=== PATIENT | male | born 1970 | race Caucasian/White ===

== ENCOUNTER 2020-04-11 14:11 | Emergency (ER) | payer MEDICARE, MEDICAID, SELFPAY ==
--- NOTE | 2020-04-11 14:31 | ED.GENADULT ---
HPI - General Adult General Chief complaint: Back Pain/Injury Stated complaint: All over body pain Time Seen by Provider: 04/11/20 14:45 Source: patient and RN notes reviewed Mode of arrival: ambulatory Limitations: no limitations History of Present Illness HPI narrative: 49-year-old male with history of CVA and baseline mild left-sided weakness presents with concern for body aches. Reports starting last night he had left shoulder pain, bilateral back pain, bilateral knee pain without injury. Reports mild cough that started yesterday. He denies shortness of breath, diaphoresis, chest pain, nausea, vomiting, diarrhea, sore throat, nasal congestion, rhinorrhea, abdominal pain. Reports taking Tylenol with no relief of pain. Denies any known sick contacts. MD complaint: bodyaches Related Data Home Medications Medication Instructions Recorded Confirmed atorvastatin 80 mg PO DAILY 04/11/20 04/11/20 clopidogrel 75 mg PO DAILY 04/11/20 04/11/20 cyclobenzaprine 10 mg PO PRN PRN 04/11/20 04/11/20 hydrochlorothiazide 25 mg PO DAILY 04/11/20 04/11/20 lisinopril 20 mg PO DAILY 04/11/20 04/11/20 potassium chloride 20 meq PO DAILY 04/11/20 04/11/20 Allergies Allergy/AdvReac Type Severity Reaction Status Date / Time No Known Allergies Allergy Verified 04/11/20 14:26 Review of Systems Review of Systems: Narrative: CONSTITUTIONAL: Denies malaise, chills, sweats, or fever. Reports fatigue EYES: Denies visual changes, redness, or discharge. ENT: Denies rhinorrhea, congestion, sinus pain, otalgia or sore throat. CARDIOVASCULAR: Denies chest pain, palpitations, or edema. RESPIRATORY: Reports mild cough. Denies dyspnea. GASTROINTESTINAL: Denies abdominal pain, nausea, vomiting, diarrhea SKIN: Denies rash or itching. MUSCULOSKELETAL: Reports bilateral back pain, left shoulder pain, bilateral knee pain NEUROLOGIC: Denies numbness, weakness, or headache. All systems reviewed & are unremarkable except as noted in HPI and below PMFSH Social History Social History Gender identity (if verbalized by the patient): Male Comments At time of signature, agree with nursing past medical, surgical, social and family history. There is no relevant family history pertinent to the presenting complaint Exam Narrative: Exam Narrative: GENERAL: Well-appearing, well-nourished, and in no acute distress. HEAD: Normocephalic, atraumatic. EYES: PERRLA, conjunctivae clear, sclera injected bilaterally ENT: Nares clear. Mucous membranes moist. Oropharynx without erythema or lesions. Tonsils not enlarged and without exudate. NECK: Supple. No lymphadenopathy. CHEST: No respiratory distress. Clear to auscultation. No bony deformities, no asymmetry. Speaks in full sentences. HEART: Regular rate and rhythm. No murmur heard. Normal peripheral pulses. EXTREMITIES: Normal range of motion. No edema. Normal strength and sensation. SKIN: Warm, dry, no rash. NEURO: Alert and oriented x3. No focal deficits. PSYCH: Normal mood and affect Course Course Emergency Course: Discussed with patient further evaluation in the emergency department versus following up with primary care doctor. Through shared decision making, patient has decided to admit treat himself at home and follow-up with his primary care provider. Patient is aware of diagnosis, understands and agrees to treatment plan. Anticipatory guidance given. Patient agrees to follow-up as directed and is aware of reasons to seek care at the emergency department. Portions of this record may have been created with voice recognition software Vital Signs Vital signs: Vital Signs Temperature 98.9 F 04/11/20 14:40 Pulse Rate 71 04/11/20 14:40 Respiratory Rate 16 04/11/20 14:40 Blood Pressure 140/78 04/11/20 14:40 Pulse Oximetry 100 04/11/20 14:40 Temperature 98.9 F 04/11/20 14:40 Pulse Rate 71 04/11/20 14:40 Respiratory Rate 16 04/11/20 14:40 Blood Pressure 140/78 04/11/20 14:40 Pul
--- NOTE | 2020-04-11 14:32 | ECG_ITS ---
Measurements Intervals [place] Rate: 79 P: -19 [place]: 161 QRS: 51 QRSD: 124 T: 36 QT: 387 QTc: 445 Interpretive Statements SINUS RHYTHM FREQUENT ATRIAL PREMATURE COMPLEXES INTRAVENTRICULAR CONDUCTION DELAY BORDERLINE ST ABNORMALITY- INFERIOR LEADS BASELINE ARTIFACT- I, III, AVR, AVL, AVF ABNORMAL ECG Electronically Signed On 04-11-2020 14:52:13 PATIENT ACCESS SPECIALIST by Emil Rivera D.O.
[2020-04-11 14:40] VITALS: BP 140/78; PULSE 71; RESP 16; TEMP 37.2; O2SAT 100
== END 2020-04-11 15:30 | disposition home or self-care (01) ==
PROVIDERS: Emergency Provider Nurse Practitioner; PCP Family Medicine
DX: R94.31 Abnormal electrocardiogram [ECG] [EKG] (principal); U07.1 COVID-19; Z86.73 Personal history of transient ischemic attack (TIA), and cerebral infarction without residual deficits; E78.00 Pure hypercholesterolemia, unspecified
CPT/HCPCS: 87426; 93005; 99213; C9803; G0463

== ENCOUNTER 2021-06-12 02:08 | Day surgery (SDC) | payer MEDICARE, MEDICAID, SELFPAY ==
[2021-05-30 14:43] VITALS: BMI 30.8
--- NOTE | 2021-06-05 12:49 | PC.NURSE ---
spoke with patient regarding holding his plavix (clopidogrel) starting on 06/08/2021 until after proc. on 06/12/2021. pt repeated back to and demonstrated verbal understanding
--- NOTE | 2021-06-10 12:43 | WPDANESEPPF ---
Anes - Initial Pre Proc Eval Procedure: Operation Date: 06/12/21 13:30 Proposed Procedures p Screening Colonoscopy - Jose Alberto Rose MD Date/Time: 06/10/21 12:43 Surgeon: Jose Alberto Rose MD Pre Op Diagnosis: neoplasm screening Patient Data Age: 51 Gender: M Height: 1.88 m Weight: 109 kg Allergies Allergy/AdvReac Type Severity Reaction Status Date / Time No Known Allergies Allergy Verified 05/30/21 14:34 Home Medications Medication Instructions Recorded Confirmed Type atorvastatin 80 mg PO DAILY 04/11/20 05/30/21 History clopidogrel 75 mg PO DAILY 04/11/20 06/12/21 History cyclobenzaprine 10 mg PO PRN PRN 04/11/20 05/30/21 History hydrochlorothiazide 25 mg PO DAILY 04/11/20 05/30/21 History lisinopril 20 mg PO DAILY 04/11/20 05/30/21 History potassium chloride 20 meq PO DAILY 04/11/20 05/30/21 History Patient hx anesthesia problems: none Family hx anesthesia problems: none Results Review: All pre-operative results and documents have been reviewed as part of the pre-operative evaluation. [facility] Past Medical History Medical History (Updated 06/10/21 @ 12:44 by Stalin Chou DO) Anxiety CVA (cerebral vascular accident) Depression Hyperlipidemia Hypertension Social History Social History Smoking status: Never smoker Alcohol intake: never Substance use: never Substance use type: does not use Living arrangements: with family Gender identity (if verbalized by the patient): Male Spiritual care concerns: No Anes - Eval Final PreProcedure Day of Procedure 06/10/21 12:43 Patient weight: obese Heart: regular rate and rhythm Lungs: clear to auscultation and normal air movement Airway: Mallampati scale class II Neurological: alert and oriented Last oral intake: >/= 8 hours ASA classification: III Emergent: no Anesthetic plan: proceed Anesthesia type and monitoring: general GIVS and standard monitoring Results Review: All pre-operative results and documents have been reviewed as part of the pre-operative evaluation. Informed Consent: The patient's anesthetic plan and its attendant risks and benefits were discussed with the patient/family/POA. Questions were solicited and answers provided to the satisfaction of the patient/family/POA.
[2021-06-12 12:21] VITALS: BP 137/87; PULSE 60; RESP 18; TEMP 36.1; O2SAT 98
[2021-06-12] MEDS: LACTATED RINGERS 1,000 ML 150 ML IV CONT (12:34)
--- NOTE | 2021-06-12 12:44 | WPDGICN ---
Assessment and Plan Assessment and plan (1) Encounter for screening colonoscopy: Code(s): Z12.11 - Encounter for screening for malignant neoplasm of colon Status: Acute Assessment and Plan: Patient presents for screening colonoscopy. Appears to be at average risk for colon polyps. GI Consult Note Consult date/time: 06/12/21 12:44 HPI: Domo Bullard is a 51 year old male Presents for screening colonoscopy. He reports that his current weight appetite and bowel movements are normal. He denies abdominal pain. He has had no bleeding. Family history is noncontributory. Patient reports that he had a CVA 7 years ago. Since that time has been maintained on Plavix. And also lipid-lowering medications. Family history is noncontributory. Review of Systems Review of Systems: All systems reviewed & are unremarkable except as noted in HPI and below PMFSH Past Medical History Medical History (Updated 06/12/21 @ 12:46 by Jose Alberto Rose MD) Anxiety CVA (cerebral vascular accident) Depression Hyperlipidemia Hypertension Social History Social History Smoking status: Never smoker Alcohol intake: never Substance use: never Substance use type: does not use Living arrangements: with family Gender identity (if verbalized by the patient): Male Spiritual care concerns: No Meds Home Medications and Allergies Home Medications Medication Instructions Recorded Confirmed Type atorvastatin 80 mg PO DAILY 04/11/20 05/30/21 History clopidogrel 75 mg PO DAILY 04/11/20 06/12/21 History cyclobenzaprine 10 mg PO PRN PRN 04/11/20 05/30/21 History hydrochlorothiazide 25 mg PO DAILY 04/11/20 05/30/21 History lisinopril 20 mg PO DAILY 04/11/20 05/30/21 History potassium chloride 20 meq PO DAILY 04/11/20 05/30/21 History Allergies Allergy/AdvReac Type Severity Reaction Status Date / Time No Known Allergies Allergy Verified 05/30/21 14:34 Vital Signs Vital Signs - 24 hr 06/12/21 12:21 Temperature 97 F L Pulse Rate 60 Respiratory Rate 18 Blood Pressure 137/87 Pulse Oximetry 98 Exam Narrative: Physical exam reveals patient be alert. Vital signs stable. HEENT exam is unremarkable. Patient is anicteric. Lungs are clear to auscultation and percussion. Heart is without murmur or extra sounds. Abdominal exam bowel sounds present soft nontender with no organomegaly. Digital external rectal exam is normal.
[2021-06-12 13:03] VITALS: BP 164/108; PULSE 66; RESP 20; O2SAT 100
[2021-06-12 13:08] VITALS: BP 156/98
[2021-06-12 13:13] VITALS: BP 148/97; PULSE 56; RESP 15; O2SAT 100
[2021-06-12 13:23] VITALS: BP 147/98; PULSE 57; RESP 11; O2SAT 100
== END 2021-06-12 13:33 | disposition home or self-care (01) ==
PROVIDERS: PCP Family Medicine; Visit Provider Internal Medicine Gastroenterology
PROC: 0DJD8ZZ Inspection of Lower Intestinal Tract, Via Natural or Artificial Opening Endoscopic (ICD-10-PCS; CPT 45378; principal; 2021-06-12 13:30)
DX: Z12.11 Encounter for screening for malignant neoplasm of colon (principal); K64.8 Other hemorrhoids; K57.30 Diverticulosis of large intestine without perforation or abscess without bleeding; I10 Essential (primary) hypertension; E78.5 Hyperlipidemia, unspecified; F41.8 Other specified anxiety disorders; Z86.73 Personal history of transient ischemic attack (TIA), and cerebral infarction without residual deficits; Z79.02 Long term (current) use of antithrombotics/antiplatelets; E66.9 Obesity, unspecified; Z68.31 Body mass index [BMI] 31.0-31.9, adult
CPT/HCPCS: G0121; J2704; J7120

== ENCOUNTER 2022-03-06 14:00 | Outpatient (RCR) | payer MEDICARE, MEDICAID, SELFPAY ==
--- NOTE | 2022-01-10 12:28 | PCPTNOTE ---
Patient called to reschedule evaluation reports his car in not starting.
--- NOTE | 2022-01-22 14:28 | PTOPEVAL1 ---
Assessment and note entered by Nik Kumar, PT Evaluation Information Assessment Status Evaluation Diagnosis L knee pain Onset gradual Subjective Information Patient reports he has been having increased L knee pain. The patient reports that his knee feels stiff in the morning or when letting it stay in the same position for extended periods of time . The patient also reports his L hip and shoulder both have degenerative joint disease and he feels like the knee might be doing the same thing. Secondary to his CVA 7 years ago the patient reports he has had to use the L side to carry extra load so that it wears down faster. He is not having any radiating symptoms of pain and it is not affecting his sleep. Reported Pain Level Pain Score 2: Self Report Assessment PT Clinical Summary Alli is a 51 year old male coming into the clinic with L knee pain. Patient has a past medical history of a CVA 7 years prior. Although his has good recovery he still had to and does put extra pressure through the L side to take stree off of the R side. Patient presents with no positive special tests or specific tenderness in around the knee stating just the entire knee hurts. The patient has decreased quad and hip strength on the L side along with tight rectus femoris, hamstring , and calf on the right side. Patient should benefit from skilled physical therapy to work on increasing the strength of the muscle in the hip and quads to take extra stress off the knee joint and long with stretches to allow for freer movement. Plan of Care Interventions Electrical Stimulation,Gait Training,Manual Therapy,Neuro Re-education,Patient/Caregiver Education,Therapeutic Activities,Therapeutic Exercise,Ultrasound PT Services Indicated Yes Treatment Frequency and 1x/wk for 6 weeks Duration These treatments will address the objective and functional deficits as defined above. The patient will be advanced safely and appropriately in order for the patient to progress towards his/her prior level of function. Additional exercises will be introduced and as well as a comprehensive home exercise program upon discharge, if needed, ?to ensure carryover of functional gains achieved in the clinic. This treatment plan has been reviewed and agreement upon by the patient.
--- NOTE | 2022-01-31 10:20 | PCPTNOTE ---
Patient did not show up for scheduled appointment this date. 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
--- NOTE | 2022-03-05 10:42 | PCPTNOTE ---
Patient called to cancel and reschedule for tomorrow
--- NOTE | 2022-03-06 14:43 | PTOPDC ---
Assessment and note entered by Nik Kumar, PT Evaluation Information Assessment Status Discharge Diagnosis L knee pain Onset gradual Subjective Information Patient reports he has been doing his exercises not everyday, but consistently. He is still going to the gym to ride a bike when able. He has an appointment with his back doctor to have imaging done with his back as he aggravated it while trying to put on his shoe. Reported Pain Level Pain Score 2: Self Report Additional Pain Score Comments non-radiating, whole knee none specific with palpation Assessment PT Clinical Summary Alli is a 51 year old male coming to the clinic for L knee pain since 01/22/22. The patient has made 6 visits and met 3/5 goals. He is proficient with his home exercise program and has made gain in strength and muscle length. Secondary to no change in pain with improved strength, range of motion, and muscle length recommend to patient to see orthopedic doctor for possible imaging and any other non-surgical options such as injections to help with the pain. Discharge from skilled physical therapy with home exercise program. Plan of Care PT Services Indicated No Treatment Frequency and discharge from skilled physical therapy. Duration
== END 2022-03-29 16:06 | disposition home or self-care (01) ==
LOC: ANHPT 14:00
PROVIDERS: PCP Family Medicine
DX: M17.12 Unilateral primary osteoarthritis, left knee (principal)
CPT/HCPCS: 97014; 97110; 97161; 99199; G0283

== ENCOUNTER 2022-10-11 11:06 | Outpatient (CLI) | payer MEDICARE, MEDICAID, SELFPAY ==
[2022-10-11 11:52] LABS: Appearance Urine Clear (Clear); Bilirubin Urine Negative (Negative); Blood Urine Negative (Negative); Color Urine Yellow (Yellow); Glucose Urine UA Negative (Negative); Ketones Urine Trace mg/dL (Negative); Leukocyte Esterase Ur Negative LEU/UL (Negative); Nitrate Urine Negative (Negative); Protein Urine Negative (Negative); Specific Grav Ur 1.026 (1.001-1.035); Urobilinogen Urine 0.2 mg/dL (<2.0)
[2022-10-11 11:54] LABS: Add Urine Microscopic? NO
--- NOTE | 2022-10-11 11:57 | ECG_ITS ---
Measurements Intervals [place] Rate: 57 P: [place]: 0 QRS: 52 QRSD: 103 T: 75 QT: 413 QTc: 404 Interpretive Statements SINUS OR ECTOPIC ATRIAL BRADYCARDIA BORDERLINE ST-T WAVE ABNORMALITY- HIGH LATERAL LEADS BASELINE WANDER- I, II, AVR, AVL, AVF, V1, V4-V6 BORDERLINE ECG COMPARED TO ECG 04/11/2020 14:42:54 SINUS OR ECTOPIC ATIRAL BRADYCARDIA NOW PRESENT ST (T WAVE) DEVIATION NOW PRESENT Electronically Signed On 10-11-2022 12:12:42 CDT by Emil Rivera D.O.
[2022-10-11 12:21] LABS: Basophils Percent Auto 0.4 % (0.2-1.2); Eosinophils Absolute Auto 0.1 K/mm3 (0-0.3); Eosinophils Percent Auto 1.2 % (0-4.4); Hematocrit 46.1 % (42.0-52.0); Hemoglobin 15.1 g/dL (14.0-18.0); Immature Granulocyte Absolute 0.03 K/mm3 (0.00-0.031); Immature Granulocyte Percent A 0.3 % (0-0.5); Lymphocytes Absolute Auto 2.13 K/mm3 (0.9-3.2); Lymphocytes Percent Auto 22.4 % (18.3-44.2); Mean Corpuscular HGB Conc 32.8 g/dl (32-36); Mean Corpuscular Hemoglobin 30.8 pg (26-34); Mean Corpuscular Volume 94.1 fl (80-100); Mean Platelet Volume 9.9 fl (7.4-10.4); Monocytes Absolute Auto 0.8 K/mm3 (0.1-0.6); Monocytes Percent Auto 8.5 % (2.6-8.5); Neutrophils Absolute Auto 6.4 K/mm3 (1.3-6.7); Neutrophils Percent Auto 67.2 % (45.5-73.1); Platelet Count Result 264 k/mm3 (150-375); Red Cell Distribution Width 13.3 % (11.5-14.5); White Blood Count 9.5 K/mm3 (4.5-10.0)
[2022-10-11 12:30] LABS: Anion Gap 9 mmol/L (8-16); Blood Urea Nitrogen 36 mg/dL (9-20); Calcium 9.4 mg/dL (8.4-10.2); Carbon Dioxide 31 mmol/L (22-30); Chloride 99 mmol/L (98-107); Estimated Glomerular Filt Rate > 60; Glucose 88 mg/dL (65-110); Potassium 3.5 mmol/L (3.4-5.0); Sodium 139 mmol/L (137-145)
== END 2022-10-11 11:07 | disposition home or self-care (01) ==
PROVIDERS: PCP Family Medicine; Visit Provider Orthopaedic Surgery
DX: I63.9 Cerebral infarction, unspecified (principal); M16.12 Unilateral primary osteoarthritis, left hip; R00.1 Bradycardia, unspecified; R94.31 Abnormal electrocardiogram [ECG] [EKG]
CPT/HCPCS: 36415; 80048; 81003; 85025; 93005

== ENCOUNTER 2022-12-21 11:01 | Outpatient (CLI) | payer MEDICARE, MEDICAID, SELFPAY ==
[2022-12-21 13:02] LABS: Partial Thromboplastin Time 29.2 SECONDS (22.3-36.8); Prothrombin Time 13.3 Seconds (11.1-14.7)
[2022-12-21 13:03] LABS: Urine Cotinine NEGATIVE
[2022-12-21 13:06] LABS: Appearance Urine Clear (Clear); Bilirubin Urine Negative (Negative); Blood Urine Negative (Negative); Color Urine Yellow (Yellow); Glucose Urine UA Negative (Negative); Ketones Urine Negative (Negative); Leukocyte Esterase Ur Negative LEU/UL (Negative); Nitrate Urine Negative (Negative); Protein Urine Negative (Negative); Specific Grav Ur 1.007 (1.001-1.035); Urobilinogen Urine 0.2 mg/dL (<2.0)
[2022-12-21 13:09] LABS: Albumin Level 4.7 g/dL (3.5-5.1); Anion Gap 2 mmol/L (8-16); Blood Urea Nitrogen 25 mg/dL (9-20); Calcium 9.6 mg/dL (8.4-10.2); Carbon Dioxide 35 mmol/L (22-30); Chloride 101 mmol/L (98-107); Estimated Glomerular Filt Rate > 60; Glucose 92 mg/dL (65-110); Potassium 4.6 mmol/L (3.4-5.0); Sodium 138 mmol/L (137-145)
[2022-12-21 13:10] LABS: Add Urine Microscopic? NO
[2022-12-21 14:07] LABS: Basophils Percent Auto 0.3 % (0.2-1.2); Eosinophils Absolute Auto 0.1 K/mm3 (0-0.3); Hematocrit 44.3 % (42.0-52.0); Hemoglobin 14.4 g/dL (14.0-18.0); Immature Granulocyte Absolute 0.01 K/mm3 (0.00-0.031); Immature Granulocyte Percent A 0.1 % (0-0.5); Lymphocytes Absolute Auto 2.01 K/mm3 (0.9-3.2); Lymphocytes Percent Auto 25.9 % (18.3-44.2); Mean Corpuscular HGB Conc 32.5 g/dl (32-36); Mean Corpuscular Hemoglobin 30.4 pg (26-34); Mean Corpuscular Volume 93.7 fl (80-100); Mean Platelet Volume 10.1 fl (7.4-10.4); Monocytes Absolute Auto 0.6 K/mm3 (0.1-0.6); Monocytes Percent Auto 7.9 % (2.6-8.5); Neutrophils Percent Auto 64.8 % (45.5-73.1); Platelet Count Result 236 k/mm3 (150-375); Red Blood Count 4.73 M/mm3 (4.6-6.20); Red Cell Distribution Width 13.1 % (11.5-14.5); White Blood Count 7.8 K/mm3 (4.5-10.0)
== END 2022-12-21 11:02 | disposition home or self-care (01) ==
LOC: ANHSURGERY 11:08
PROVIDERS: PCP Family Medicine; Visit Provider Orthopaedic Surgery
DX: Z01.818 Encounter for other preprocedural examination (principal); M16.12 Unilateral primary osteoarthritis, left hip
CPT/HCPCS: 80048; 80307; 81003; 82040; 83036; 85025; 85610; 85730; 86850; 86900; 86901; 87081

== ENCOUNTER 2023-01-02 00:38 | Day surgery (SDC) | payer MEDICARE, MEDICAID, SELFPAY ==
[2022-12-21 11:26] VITALS: BMI 33.1
[2022-12-21 11:34] VITALS: BP 104/71; PULSE 56; RESP 16; TEMP 36.3; O2SAT 98
--- NOTE | 2022-12-21 11:54 | PC.NURSE ---
Report to the Outpatient Waiting Room, entrance under the green pavilion located off [facility], at time __6:00AM on date ___01/02/23____. Planned Procedure Time: __7:30AM . Time changes happen often and if your time is changed the preop area will call you the afternoon before. - You and your visitor will be asked to self-screen and do not enter if you have any COVID symptoms. - A mask is optional within the hospital at this time. Patients may have clear liquids (water, carbonated beverages, clear teas, apple juice) until 3 hours prior to surgery with a maximum of 20 ounces. - No food from midnight until time of surgery. Take the following medications with a SIP of water the morning of surgery: NONE DO NOT STOP ANY OF YOUR OTHER PRESCRIPTION MEDICATIONS PRIOR TO SURGERY ?EXCEPT THE FOLLOWING Medications to discontinue per physician ___HOLD CLOPIDOGREL 5 DAYS PRE-OP PER DR ANDERSON(PER PATIENT) Date to take last dose 12/27/22 Please no make-up, nail italian, hairspray, perfume, deodorant, or body powder the day of surgery. No jewelry (including any body piercings) or valuables the day of surgery, leave them at home. Please take a shower or bath the night before, or the morning of, surgery with an antibacterial soap. Wear comfortable, loose fitting clothing. Children are encouraged to wear pajamas. - Jewelry must be removed prior to entering the operating room. Rings and piercings that are not removed may be cut off. - The hospital will not accept responsibility for valuables. - Please leave all valuables, including medications, at home the day of surgery. If you are going home after surgery, a licensed regional company hazmat tanker driver must drive you home. - NO public transportation without another adult if you receive anesthesia. - We recommend that an adult stay with you for 24 hours following discharge. - We also recommend that you do not drive, make important decision, drink alcoholic beverages, or take any drugs that were not prescribed by your health care provider for at least 24 hours after your discharge time. Follow any additional instructions given to you from your surgeon. If you or anyone in your household have experienced Covid symptoms in the past week, please notify your surgeon or the nurse liaison at the phone number below for possible testing. Telephone instructions given to _PATIENT and asked if any additional questions and then verbalized understanding. Patient advised to call surgeon office or pre surgery nurse liaison [phone] if any additional questions.
[2023-01-02] VITALS (14 sets, daily range): BP systolic 113–152; BP diastolic 57–80; PULSE 61–93; RESP 11–20; TEMP 36.1–36.8; O2SAT 95–100; BMI 34.2
--- NOTE | ~2023-01-02 | XR_ITS ---
EXAMINATION: XR hip LT min 2V DATE: 01/02/2023 11:31 INDICATION: Left hip arthroplasty TECHNIQUE: 2 views left hip FINDINGS: There is a left bipolar hip arthroplasty in expected position. Subcutaneous gas with soft tissue swelling are consistent with recent surgery. IMPRESSION: 1. Recent left bipolar hip arthroplasty. Reviewed, dictated and finalized at location B.
[2023-01-02] MEDS: LACTATED RINGERS 1,000 ML 30 ML IV CONT ×3 (06:32→11:42)
[2023-01-02] MEDS: ACETAMINOPHEN 500 MG TABLET 1000 MG PO (06:44)
--- NOTE | 2023-01-02 06:45 | SUR.PREOP ---
0645- Notified Dr. Cardoso patient took Lisinopril 20MG and HCTZ 25MG this AM at 0445. BP 123/66 with HR in low 60's. MD is aware and OK to proceed with procedure- no additional orders.
[2023-01-02] MEDS: TRANEXAMIC ACID 1,000MG/ISO100 1,000 MG/100 ML BAG 200 MG IVPB (06:55)
--- NOTE | 2023-01-02 07:00 | P.PNAN_ITS ---
Anes - Initial Pre Proc Eval Procedure: Operation Date: 01/02/23 07:30 Proposed Procedures p Left Total Hip Arthroplasty - Jareth Jones MD Date/Time: 01/02/23 07:00 Surgeon: Jareth Jones MD Pre Op Diagnosis: left hip djd Patient Data Age: 52 Gender: M Height: 1.88 m Weight: 121.2 kg Last Vital Signs Temp 36.3 C L 12/21/22 11:34 Pulse 56 L 12/21/22 11:34 Resp 16 12/21/22 11:34 BP 104/71 12/21/22 11:34 Pulse Ox 98 12/21/22 11:34 O2 Del Method Room Air 12/21/22 11:34 Allergies Allergy/AdvReac Type Severity Reaction Status Date / Time naproxen Allergy Unknown Other Verified 01/02/23 06:23 Home Medications Medication Instructions Recorded Confirmed Type atorvastatin 80 mg tablet 80 mg PO HS 04/11/20 01/02/23 History clopidogrel 75 mg tablet 75 mg PO DAILY 04/11/20 01/02/23 History cyclobenzaprine 10 mg tablet 10 mg PO PRN PRN Muscle Pain 04/11/20 12/24/22 History hydrochlorothiazide 25 mg tablet 25 mg PO QAM 04/11/20 01/02/23 History lisinopril 20 mg tablet 20 mg PO DAILY 04/11/20 01/02/23 History acetaminophen 500 mg capsule 500 mg PO Q6H PRN Pain 12/21/22 12/24/22 History chlorhexidine gluconate 4 % 1 applic topical ONCE #237 mL 12/24/22 12/24/22 Rx topical liquid (Hibiclens) Patient hx anesthesia problems: none Family hx anesthesia problems: none Results Review: All pre-operative results and documents have been reviewed as part of the pre- operative evaluation. [facility] Past Medical History Medical History Anxiety CVA (cerebral vascular accident) Depression Hyperlipidemia Hypertension Social History Social History Smoking status: Never smoker Alcohol intake: never Substance use: never Substance use type: does not use Living arrangements: with family Additional living arrangements comments: & MOTHER Gender identity (if verbalized by the patient): Male Spiritual care concerns: No Anes - Eval Final PreProcedure Day of Procedure 01/02/23 07:00 Patient weight: obese Heart: regular rate and rhythm Lungs: clear to auscultation Airway: Mallampati scale class II Neurological: alert and oriented Last oral intake: >/= 8 hours ASA classification: III Emergent: no Anesthetic plan: proceed Anesthesia type and monitoring: general ETT and standard monitoring Results Review: All pre-operative results and documents have been reviewed as part of the pre- operative evaluation. Informed Consent: The patient's anesthetic plan and its attendant risks and benefits were discussed with the patient/family/POA. Questions were solicited and answers provided to the satisfaction of the patient/family/POA.
--- NOTE | 2023-01-02 07:18 | WPDHPUPDATE1 ---
History and Physical Update Update Date/Time: 01/02/23 07:18 History and Physical has been reviewed, including an updated exam of the patient. There are NO changes in the patient's condition. Risks, benefits, and alternatives have been discussed and questions answered. Patient agrees to proceed with procedure.
[2023-01-02] MEDS: ceFAZolin 3 GM/D5W 100 ML 100 ML IVPB (07:39)
[2023-01-02] MEDS: TRANEXAMIC ACID 1,000 MG/10 ML AMPUL 1000 MG IV PUSH (10:12)
--- NOTE | 2023-01-02 10:51 | W.PM.PROC2 ---
Procedure Note - Detailed Date of Procedure 01/02/23 Pre-op Diagnosis left hip djd Post-op Diagnosis Same Procedure Performed L ESTEB[facility] Surgeon Jareth Jones MD Anesthesia General Description of Procedure THE PATIENT WAS TAKEN TO THE OPERATING ROOM IN STABLE CONDITION AND WAS PLACED IN THE LATERAL DECUBITUS AND THE LEFT LOWER EXTREMITY WAS PREPPED AND DRAPED IN THE STERILE FASHION. INCISION WAS MADE IN THE POSTERIOR LATERAL SIDE OF THE HIP, DOWN TO THE FASCIA LAYER. THE FASCIA WAS INCISED. THE HIP WAS EXPOSED. THE SHORT EXTERNAL ROTATORS WERE EXPOSED. THE SCIATIC NERVE WAS IDENTIFIED. INCISION WAS MADE THROUGH THE SHORT EXTERNAL ROTATORS AND THE CAPSULE OF THE HIP JOINT. THE HIP WAS DISLOCATED. AN OSTEOTOMY WAS MADE TO THE FEMORAL NECK ABOUT 1 CM PROXIMAL TO THE LESSER TROCHANTER. THE ACETABULUM WAS EXPOSED. THE ACETABULUM WAS REAMED TO 59 MM. A 59 MM TRIAL WAS PLACED IN 35 DEG OF ABDUCTION AND ANTEVERSION WAS IN ALIGNMENT WITH THE TRANS ACETABULAR LIGAMENT. THE FIT WAS EXCELLENT. THE TRIAL WAS REMOVED. A 60 MM BIOMET G7 COMPONENT WAS THEN TAPPED IN TO PLACE IN 35 DEG OF ABDUCTION AND ANTEVERSION IN ALIGNMENT WITH THE TRANSVERSE ACETABULAR LIGAMENT. THE FIT WAS EXCELLENT. THE ACETABULAR LINER WAS PLACED AND CHECKED FOR STABILITY. NEXT THE FEMUR WAS PREPARED WITH INITIAL CANAL FINDER THEN SEQUENTIAL BROACHING WITH A TAPERLOC HIP SYSTEM, UNTIL A 14 BROACH FIT WELL IN 15 OF ANTEVERSION. A 0 HIGH OFFSET NECK WITH 36 MM HEAD TRIAL WAS PLACED. THE SHUCK TEST WAS EXCELLENT AND THE STABILITY IN FLEXION AND ROTATION WAS EXCELLENT. LEG LENGTHS WERE GROSSLY EQUAL. TRIALS WERE REMOVED. A BIOMET TAPERLOC 14 STEM WAS PLACED WITH A HIGH OFFSET NECK. THE FIT WAS EXCELLENT IN 15 DEG OF ANTEVERSION. A 0 CERAMIC 36 MM FEMORAL CERAMIC HEAD WAS PLACED. THE HIP WAS TRIALED AND THE STABILITY WAS EXCELLENT WERE THE LEG LENGTHS AND THE SHUCK TEST. THE WOUND WAS IRRIGATED WITH STERILE BETADINE AND WATER FOR 3 MIN. THEN WASHED AGAIN. THE CAPSULE AND THE EXTERNAL ROTATORS WERE APPROXIMATED WITH NUMBER 1 VICRYL. THE FASCIA WITH No 2 QUIL AND THE SUB CUTANEOUS LAYER WITH 2-0 ABSORBABLE SUTURE WITH A RUNNING 3-0 SUBCUTICULAR LAYER WELL. DERMABOND WAS PLACED AND STERILE DRESSING WAS APPLIED. PATIENT WAS PLACED BACK ON TO THE SUPINE POSITION AND WAS EXTUBATED Estimated Blood Loss 250 Complications No immediate complications Condition Stable Disposition PACU
[2023-01-02] MEDS: fentaNYL CITRATE INJ (*CRX) 100 MCG/2 ML VIAL 25 MCG IV PUSH ×2 (11:35→11:44)
--- NOTE | 2023-01-02 12:58 | ADMGEN ---
This patient, Domo Bullard, was admitted to Medical Room 240-01. Patient/family oriented to hospital policies and general routines including ID bracelet, bed and alarms, visiting hours, pain management, procedures, bathroom and other care routines, personal items, smoking policy, room service/diet, and visiting hours. Information on how to activate the Rapid Response Team has been discussed. Patient/Family are encouraged to report perceived risks to care and to ask questions if they do not understand what they are told or what they should do.
[2023-01-02] MEDS: KETOROLAC 15 MG/ML VIAL (*BKC) IV PUSH ×3 (13:23→17:12)
[2023-01-02] MEDS: SODIUM CHLORIDE 0.9% IV 1,000 ML 125 ML IV CONT ×2 (13:23→20:53)
[2023-01-02] MEDS: HYDROcodone/acetaminophen (*CRX) 7.5-325 MG TABLET 2 TAB PO (15:20)
[2023-01-02] MEDS: ceFAZolin 2 GM/D5W 50 ML 2 GM/50 ML BAG IVPB (15:21)
[2023-01-02] MEDS: SENNA/DOCUSATE SODIUM TABLET 2 TAB PO (17:12)
[2023-01-02] MEDS: ASPIRIN 325 MG ENTERIC TABLET PO (20:52)
[2023-01-02] MEDS: CYCLOBENZAPRINE HCL 10 MG TABLET PO (20:52)
[2023-01-02] MEDS: ATORVASTATIN 40 MG TABLET 80 MG PO (20:53)
[2023-01-02] MEDS: HYDROcodone/acetaminophen (*CRX) 7.5-325 MG TABLET 1 TAB PO (20:53)
[2023-01-02] MEDS: FAMOTIDINE 20 MG TABLET PO (20:53)
[2023-01-03] MEDS: ceFAZolin 2 GM/D5W 50 ML 2 GM/50 ML BAG IVPB ×2 (00:13→08:25)
[2023-01-03 02:23] VITALS: BP 129/57; PULSE 77; RESP 18; TEMP 36.1; O2SAT 97
[2023-01-03 06:08] LABS: Basophils Percent Auto 0.2 % (0.2-1.2); Hematocrit 34.8 % (42.0-52.0); Hemoglobin 11.7 g/dL (14.0-18.0); Immature Granulocyte Absolute 0.06 K/mm3 (0.00-0.031); Immature Granulocyte Percent A 0.4 % (0-0.5); Lymphocytes Absolute Auto 1.28 K/mm3 (0.9-3.2); Lymphocytes Percent Auto 7.5 % (18.3-44.2); Mean Corpuscular HGB Conc 33.6 g/dl (32-36); Mean Corpuscular Hemoglobin 31.6 pg (26-34); Mean Corpuscular Volume 94.1 fl (80-100); Mean Platelet Volume 10.5 fl (7.4-10.4); Monocytes Absolute Auto 1.7 K/mm3 (0.1-0.6); Monocytes Percent Auto 10.3 % (2.6-8.5); Neutrophils Absolute Auto 13.9 K/mm3 (1.3-6.7); Neutrophils Percent Auto 81.6 % (45.5-73.1); Platelet Count Result 217 k/mm3 (150-375); Red Cell Distribution Width 13.6 % (11.5-14.5)
[2023-01-03 06:18] LABS: Anion Gap 6 mmol/L (8-16); Blood Urea Nitrogen 30 mg/dL (9-20); Calcium 8.1 mg/dL (8.4-10.2); Carbon Dioxide 27 mmol/L (22-30); Chloride 105 mmol/L (98-107); Estimated CRCL calculation 103 ml/min; Estimated Glomerular Filt Rate > 60; Glucose 130 mg/dL (65-110); Potassium 3.4 mmol/L (3.4-5.0); Sodium 138 mmol/L (137-145)
[2023-01-03] MEDS: SODIUM CHLORIDE 0.9% IV 1,000 ML 125 ML IV CONT (06:18)
[2023-01-03] MEDS: KETOROLAC 15 MG/ML VIAL (*BKC) IV PUSH (06:18)
[2023-01-03 06:35] VITALS: BP 119/64; PULSE 66; RESP 20; TEMP 36.4; O2SAT 98
[2023-01-03] MEDS: lisinopriL 20 MG TABLET PO (08:25)
[2023-01-03] MEDS: hydroCHLOROthiazide 25 MG TABLET PO (08:25)
[2023-01-03] MEDS: SENNA/DOCUSATE SODIUM TABLET 2 TAB PO (08:25)
[2023-01-03] MEDS: CLOPIDOGREL BISULFATE 75 MG TABLET PO (08:25)
[2023-01-03] MEDS: polyethylene glycoL 3350 17 GM POWD.PACK PO (08:25)
[2023-01-03] MEDS: FAMOTIDINE 20 MG TABLET PO (08:25)
[2023-01-03] MEDS: ASPIRIN 325 MG ENTERIC TABLET PO (08:25)
--- NOTE | 2023-01-03 08:40 | PCPTNOTE ---
Attempted to see patient for PT, however patient was eating breakfast.
--- NOTE | 2023-01-03 09:14 | PM.PNORT ---
Progress Note: A&P Assessment and Plan (1) S/P total hip arthroplasty: Qualifiers: Laterality: left Qualified Code(s): Z96.642 - Presence of left artificial hip joint Code(s): Z96.649 - Presence of unspecified artificial hip joint Status: Acute Assessment and Plan: POD #1 : Left ESTEBAN Continue PT/OT. WBAT. Walker. HIGH FALL RISK. Continue pain control. Ice Hip. Protect skin. DVT prophylaxis with Aspirin and Resumed Plavix. SCDs. Incentive Spirometry Use reviewed. Monitor Dressing. Change prior to discharge. Bowel Regimen. Dispo: Home with Home Health pending progress with PT/OT Plan Reviewed postoperative vitals, labs, radiographs, medications and physical exam with attending MD, Dr. Jones who agrees with current plan as indicated above. No furhter recommendations at this time. Subjective Subjective Date/Time Seen: 01/03/23 09:14 Post Op day: 1 Interval history: POD #1: Left ESTEBAN Patient doing well. Pain well controlled. Awaiting PT/OT. Hopeful for discharge home today. Review of Systems Constitutional: Constitutional: Denies chills, Denies fatigue, Denies fever(s), Denies night sweats and Denies weakness Cardiovascular: Cardiovascular: Denies chest pain, Denies lightheadedness, Denies palpitations and Denies dyspnea Respiratory: Respiratory: Denies cough, Denies dyspnea and Denies wheezing Gastrointestinal: Gastrointestinal: Denies abdominal pain, Denies diarrhea, Denies nausea and Denies vomiting Musculoskeletal: Musculoskeletal: Reports arthralgias (left hip ), Reports joint swelling (left hip ) and Denies numbness Neurologic: Denies numbness and Denies weakness Endocrine: Endocrine: Denies fatigue and Denies palpitations Allergic/Immunologic: Allergic/Immunologic: Denies wheezing Exam Const: General: comfortable and no acute distress Orientation/consciousness: patient oriented x3 Limitations: no limitations Resp: Effort & Inspection: normal respiratory effort Cardio: Rate: regular rate Rhythm: regular rhythm GI: Inspection: non-distended Skin: General skin exam: normal color and wounds noted (incision left hip C/D/I ) Wounds: wounds noted (incision left hip C/D/I ) Neuro: General: patient oriented x3 Extrem: Left lower extremity: hip/thigh Details: tenderness Location: of the hip Location: laterally and anteriorly, swelling (thigh soft ) Location: of the hip (lateral. ), abnormal ROM (limitations with internal/external rotation and flexion/extension due to recent surgical intervention ) and other (incision lateral hip c/d/i. ), knee Details: normal to inspection and normal ROM; no tenderness and no swelling, lower leg (Negative Shiv's Sign ) Details: no edema, ankle (+ankle dorsiflexion/plantarflexion ) Details: normal to inspection, no edema and normal ROM; no tenderness, no swelling and no warmth and foot Details: normal capillary refill, toes with normal ROM, vascular exam Details: dorsalis pedis pulse present and motor-sensory exam light-touch normal in all toes; no tenderness, no ecchymosis and no crepitus Psych: Mental Status: mental status grossly normal Affect: normal affect Objective Data Vital Signs Vital Signs: Vital Signs - 24 hr 01/02/23 11:00 01/02/23 11:15 01/02/23 11:30 Temperature 36.1 C L Pulse Rate 78 80 74 Respiratory Rate 11 L 12 12 Blood Pressure 113/60 132/65 124/66 Pulse Oximetry 97 98 98 Oxygen Delivery Simple Face Mask Simple Face Mask Room Air Oxygen Flow Rate 10 10 01/02/23 11:45 01/02/23 12:00 01/02/23 12:15 Temperature Pulse Rate 78 79 83 Respiratory Rate 13 12 14 Blood Pressure 144/80 H 149/79 H 152/75 H Pulse Oximetry 95 95 96 Oxygen Delivery Room Air Room Air Room Air Oxygen Flow Rate 01/02/23 12:55 01/02/23 13:10 01/02/23 13:40 Temperature 36.5 C 36.5 C 36.4 C Pulse Rate 80 82 79 Respiratory Rate 14 15 15 Blood Pressure 144/77 H 147/80 H 149/77 H Pulse Oximetry 96 100 97 Oxygen Deliv
--- NOTE | 2023-01-03 10:15 | P.PNAN_ITS ---
Anes - Prog Note Post-Op Date/Time: 01/03/23 10:15 Cardiovascular status: normal Respiratory status: normal Airway patency: baseline Mental status: baseline Post-Op hydration status: normal Vital Signs: Last Vital Signs Temp 97.6 F 01/03/23 06:35 Pulse 66 01/03/23 06:35 Resp 20 01/03/23 06:35 BP 119/64 01/03/23 06:35 Pulse Ox 98 01/03/23 06:35 O2 Del Method Room Air 01/03/23 08:00 O2 Flow Rate 01/02/23 11:15 Pain Score (VAS): 0/10 I/O: Intake & Output 01/02/23 01/03/23 01/03/23 23:59 07:59 15:59 Intake Total 1000 1450 120 Balance 1000 1450 120 Laboratory Tests 01/03/23 05:10 01/03/23 05:10 01/03/23 05:10 WBC 17.0 H RBC 3.70 L Hgb 11.7 L Hct 34.8 L MCV 94.1 MCH 31.6 MCHC 33.6 RDW 13.6 Plt Count 217 MPV 10.5 H Immature Gran % (Auto) 0.4 Neut % (Auto) 81.6 H Lymph % (Auto) 7.5 L [place] % (Auto) 10.3 H Eos % (Auto) 0.0 Baso % (Auto) 0.2 Lymph # (Auto) 1.28 [place] # (Auto) 1.7 H Eos # (Auto) 0.0 Baso # (Auto) 0.0 Abs Immat Gran (auto) 0.06 H Absolute Neuts (auto) 13.9 H Absolute Nucleated RBC 0.0 Nucleated RBC % 0.0 Sodium 138 Potassium 3.4 Chloride 105 Carbon Dioxide 27 Anion Gap 6 L BUN 30 H Creatinine 1.00 Estim Creat Clear Calc 103 Estimated GFR > 60 Glucose 130 H Calcium 8.1 L Post-procedural complaints: none Patient Feedback: Patient satisfied with anesthetic care.
[2023-01-03 10:35] VITALS: BP 122/62; PULSE 64; RESP 20; TEMP 36.5; O2SAT 98
--- NOTE | 2023-01-03 13:09 | PM.DS ---
DS: Admitting Diagnosis Discharge Date 01/03/2023 Admitting Diagnosis Left Hip DJD DS: Discharge Diagnosis Discharge Diagnosis (1) S/P total hip arthroplasty: Qualifiers: Laterality: left Qualified Code(s): Z96.642 - Presence of left artificial hip joint Code(s): Z96.649 - Presence of unspecified artificial hip joint Status: Acute Assessment and Plan: POD #1 : Left ESTEBAN Continue PT/OT. WBAT. Walker. HIGH FALL RISK. Continue pain control. Ice Hip. Protect skin. DVT prophylaxis with Aspirin and Resumed Plavix. SCDs. Incentive Spirometry Use reviewed. Monitor Dressing. Change prior to discharge. Bowel Regimen. Dispo: Home with Home Health pending progress with PT/OT Plan Reviewed postoperative vitals, labs, radiographs, medications and physical exam with attending MD, Dr. Jones who agrees with current plan as indicated above. No furhter recommendations at this time. DS: Summary Hospital Course Reason for hospitalization: Left ESTEBAN Hospital Course: 52 year old male admitted s/p Left ESTEBAN for postoperative medical management, pain control and mobilization with PT/OT. Patient progressed well with PT/OT. Pain and vitals remained stable throughout. The patient has been cleared to be discharged home with home health at this time. All discharge care instructions reviewed at depth. New medications reviewed. Follow up planned for 3 weeks in the outpatient orthopedic clinic with Dr. Jones. Dr. Jones in agreement for discharge today. Status at Discharge Functional status at discharge: uses cane/walker Overall status at discharge: patient is progressing back to baseline Time Spent with Patient Time attestation: Total time spent providing and/or coordinating discharge services: Exam Const: General: comfortable and no acute distress Orientation/consciousness: patient oriented x3 Limitations: no limitations Resp: Effort & Inspection: normal respiratory effort Cardio: Rate: regular rate Rhythm: regular rhythm GI: Inspection: non-distended Skin: General skin exam: normal color and wounds noted (incision left hip C/D/I ) Wounds: wounds noted (incision left hip C/D/I ) Neuro: General: patient oriented x3 Extrem: Left lower extremity: hip/thigh Details: tenderness Location: of the hip Location: laterally and anteriorly, swelling (thigh soft ) Location: of the hip (lateral. ), abnormal ROM (limitations with internal/external rotation and flexion/extension due to recent surgical intervention ) and other (incision lateral hip c/d/i. ), knee Details: normal to inspection and normal ROM; no tenderness and no swelling, lower leg (Negative Shiv's Sign ) Details: no edema, ankle (+ankle dorsiflexion/plantarflexion ) Details: normal to inspection, no edema and normal ROM; no tenderness, no swelling and no warmth and foot Details: normal capillary refill, toes with normal ROM, vascular exam Details: dorsalis pedis pulse present and motor-sensory exam light-touch normal in all toes; no tenderness, no ecchymosis and no crepitus Psych: Mental Status: mental status grossly normal Affect: normal affect DS: Data Data Completed and Pending Labs on day of discharge: Labs from last 24 hours 01/03/23 05:10 WBC 17.0 H RBC 3.70 L Hgb 11.7 L Hct 34.8 L MCV 94.1 MCH 31.6 MCHC 33.6 RDW 13.6 Plt Count 217 MPV 10.5 H Immature Gran % (Auto) 0.4 Neut % (Auto) 81.6 H Lymph % (Auto) 7.5 L [place] % (Auto) 10.3 H Eos % (Auto) 0.0 Baso % (Auto) 0.2 Lymph # (Auto) 1.28 [place] # (Auto) 1.7 H Eos # (Auto) 0.0 Baso # (Auto) 0.0 Abs Immat Gran (auto) 0.06 H Absolute Neuts (auto) 13.9 H Absolute Nucleated RBC 0.0 Nucleated RBC % 0.0 Sodium 138 Potassium 3.4 Chloride 105 Carbon Dioxide 27 Anion Gap 6 L BUN 30 H Creatinine 1.00 Estim Creat Clear Calc 103 Estimated GFR > 60 Glucose 130 H Calcium 8.1 L Discharge Plan Discharge Patient Disposition: Home Health
== END 2023-01-03 14:50 | disposition home health service (06) ==
LOC: ANHSURGERY 05:46 → ANH2MED 12:52
PROVIDERS: PCP Family Medicine; Visit Provider Orthopaedic Surgery
PROC: (CPT 27130; principal; 2023-01-02 07:30)
DX: M16.12 Unilateral primary osteoarthritis, left hip (principal); F41.8 Other specified anxiety disorders; E78.5 Hyperlipidemia, unspecified; I10 Essential (primary) hypertension
CPT/HCPCS: 27130; 36415; 73502; 80048; 80307; 81003; 82040; 83036; 85025; 85610; 85730; 86850; 86900; 86901; 87081; 97110; 97116; 97161; 97165; 97530; 97535; A9270; C1713; C1776; J0171; J0360; J0690; J1100; J1170; J1885; J2250; J2270; J2405; J2704; J2795; J3010; J7030; J7120

== ENCOUNTER 2023-02-13 20:27 | Emergency (ER) | payer MEDICARE, MEDICAID, SELFPAY ==
[2023-02-13 20:29] VITALS: BP 140/75; PULSE 78; RESP 16; TEMP 36.7; O2SAT 100
[2023-02-13 22:16] LABS: Basophils Percent Auto 0.3 % (0.2-1.2); Eosinophils Absolute Auto 0.2 K/mm3 (0-0.3); Eosinophils Percent Auto 1.9 % (0-4.4); Hematocrit 39.2 % (42.0-52.0); Hemoglobin 12.7 g/dL (14.0-18.0); Immature Granulocyte Absolute 0.03 K/mm3 (0.00-0.031); Immature Granulocyte Percent A 0.3 % (0-0.5); Lymphocytes Absolute Auto 2.01 K/mm3 (0.9-3.2); Lymphocytes Percent Auto 21.2 % (18.3-44.2); Mean Corpuscular HGB Conc 32.4 g/dl (32-36); Mean Corpuscular Hemoglobin 30.2 pg (26-34); Mean Corpuscular Volume 93.1 fl (80-100); Mean Platelet Volume 9.3 fl (7.4-10.4); Monocytes Absolute Auto 0.7 K/mm3 (0.1-0.6); Neutrophils Absolute Auto 6.6 K/mm3 (1.3-6.7); Neutrophils Percent Auto 69.3 % (45.5-73.1); Platelet Count Result 250 k/mm3 (150-375); Red Blood Count 4.21 M/mm3 (4.6-6.20); Red Cell Distribution Width 13.4 % (11.5-14.5); White Blood Count 9.5 K/mm3 (4.5-10.0)
[2023-02-13 22:26] LABS: Prothrombin Time 13.7 Seconds (11.1-14.7)
[2023-02-13] MEDS: TRANEXAMIC ACID 1,000 MG/10 ML AMPUL 1000 MG XX (22:30)
--- NOTE | 2023-02-13 22:57 | ED.GENADULT ---
HPI - General Adult General Chief complaint: Unspecified Stated complaint: bleeding from mouth Time Seen by Provider: 02/13/23 21:25 Source: patient Mode of arrival: ambulatory Limitations: no limitations History of Present Illness HPI narrative: This is a 52 year old male that presents to the ER for bleeding from the gums. Reports he had just finished eating dinner and noticed he was bleeding in his mouth. No injuries or recent procedures. He is unsure where the bleeding is coming from and cannot get it to stop which prompted him to be seen. Denies fevers. Related Data Home Medications Medication Instructions Recorded Confirmed atorvastatin 80 mg tablet 80 mg PO HS 04/11/20 01/24/23 clopidogrel 75 mg tablet 75 mg PO DAILY 04/11/20 01/24/23 cyclobenzaprine 10 mg tablet 10 mg PO PRN PRN Muscle Pain 04/11/20 01/24/23 hydrochlorothiazide 25 mg tablet 25 mg PO QAM 04/11/20 01/24/23 lisinopril 20 mg tablet 20 mg PO DAILY 04/11/20 01/24/23 acetaminophen 500 mg capsule 500 mg PO Q6H PRN Pain 12/21/22 01/24/23 Allergies Allergy/AdvReac Type Severity Reaction Status Date / Time naproxen Allergy Unknown Other Verified 01/24/23 09:05 Review of Systems Review of Systems: CONSTITUTIONAL: Denies fever, ENT: Reports bleeding All systems reviewed & are unremarkable except as noted in HPI and below PMFSH Past Medical History Medical History (Updated 02/13/23 @ 23:14 by Veda Smith PA-C) Anxiety CVA (cerebral vascular accident) Depression Hyperlipidemia Hypertension Social History Social History Smoking status: Never smoker Alcohol intake: former Substance use: never Substance use type: does not use Lack of Transportation: No Lack of Food: Never True Current Housing: I Have Housing Concerned About Future Housing: No Difficulty Paying Gas/Electric Bills: No Difficulty Paying for Meds: YES Currently Unemployed: No Education: Associate Degree Difficulty w/ Childcare or Family Care: No Living arrangements: with family Additional living arrangements comments: & MOTHER Gender identity (if verbalized by the patient): Male Spiritual care concerns: No Exam Narrative: GENERAL: Well-appearing, well-nourished, and in no acute distress. HEAD: Normocephalic, atraumatic. EYES: EOMI. ENT: Mucous membranes moist. Oropharynx without tonsillar hypertrophy exudate or other lesions. Oozing of blood from the right side of the gums on the floor of the mouth laterally CHEST: No respiratory distress. HEART: Regular rate EXTREMITIES: Normal range of motion. No edema. SKIN: Warm, dry, no rash. NEURO: No focal deficits. Alert and oriented x3. PSYCH: Normal mood and affect Course Course Emergency Course: Patient agrees with plan of care Vital Signs Vital signs: Vital Signs Temperature 98.1 F 02/13/23 20:29 Pulse Rate 78 02/13/23 20:29 Respiratory Rate 16 02/13/23 20:29 Blood Pressure 140/75 02/13/23 20:29 Pulse Oximetry 100 02/13/23 20:29 Oxygen Delivery Room Air 02/13/23 20:29 Temperature 98.1 F 02/13/23 20:29 Pulse Rate 78 02/13/23 20:29 Respiratory Rate 16 02/13/23 20:29 Blood Pressure 140/75 02/13/23 20:29 Pulse Oximetry 100 02/13/23 20:29 Oxygen Delivery Room Air 02/13/23 20:29 Procedures Other Procedure Procedure 1: Other Procedure: Gingival bleeding was controlled by holding pressure to the area with topical TXA on gauze Medical Decision Making MDM Narrative Medical decision making narrative: Patient presents to the emergency department for gingival bleeding. This was controlled with pressure to the area and topical TXA. Patient is mildly anemic with hemoglobin of 12.7. Although this is increased from his previous blood work. No concerning findings on coagulation studies. Patient does take clopidogrel daily for his history of stroke. He was taking a
[2023-02-13 23:27] VITALS: BP 113/68; PULSE 67; RESP 15; TEMP 36.3; O2SAT 100
== END 2023-02-13 23:28 | disposition home or self-care (01) ==
PROVIDERS: Emergency Provider Physician Assistant; PCP Family Medicine
DX: K06.8 Other specified disorders of gingiva and edentulous alveolar ridge (principal); E78.5 Hyperlipidemia, unspecified; I10 Essential (primary) hypertension; Z86.73 Personal history of transient ischemic attack (TIA), and cerebral infarction without residual deficits; Z79.82 Long term (current) use of aspirin
CPT/HCPCS: 36415; 85025; 85610; 85730; 99283